=== PATIENT | female | born 1980 | race Caucasian/White ===

== ENCOUNTER 2018-04-11 16:02 | Emergency (ER) | payer MEDICARE ==
[2018-04-11] MEDS ORDERED: MOTRIN 600 MG PO ONE (16:19)
--- NOTE | 2018-04-11 16:35 | ERPHSYRPT ---
- History of Present Illness Time Seen by Provider: 04/11/18 16:13 Source: patient Exam Limitations: clinical condition Patient Subjective Stated Complaint: hurt left ankle and right elbow falling out of a freezer Triage Nursing Assessment: Pt c/o of stepping out of a large freezer and fell and hurt her left foot and right elbow, left foot is swollen, right elbow is bruised, denies any other injuries, vitals wnl, pulses normal, doesn't appear to be in any distress Physician History: PATIENT FELL OUT OF FREEZER SUSTAINED INJURY TO HER LEFT FOOT AND RIGHT ELBOW. DENIES HEAD, NECK OR BACK INJURY, HAS SWELLING OVER LEFT FOOT. Occurred: just prior to arrival Reason for Fall: lost balance Injuries/Pain Location: upper extremity, lower extremity Loss of Consciousness: no loss of consciousness Quality: aching Severity of Pain-Max: mild Severity of Pain-Current: mild Modifying Factors: Improves With: movement Associated Symptoms (Fall): trouble walking, other (HAS PAIN UPON WEIGHT BEARING.) Allergies/Adverse Reactions: No Known Drug Allergies Allergy (Verified 04/11/18 16:17) Home Medications: Alprazolam 1 mg [Xanax 1 mg] 1 mg PO TID 04/11/18 [History] Hx Tetanus, Diphtheria Vaccination/Date Given: No - Past Medical History Pertinent Past Medical History: Yes Psycho-Social History: Anxiety - Past Surgical History Past Surgical History: No - Social History Smoking Status: Current every day smoker How long have you smoked: 15 years Exposure to second hand smoke: Yes Drug Use: none Patient Lives Alone: No - Female History Hx Last Menstrual Period: 03/19/2018 Hx Now: No - Nursing Vital Signs Nursing Vital Signs: Initial Vital Signs Temperature 98.0 F 04/11/18 16:07 Pulse Rate 83 04/11/18 16:07 Blood Pressure 128/78 04/11/18 16:07 O2 Sat by Pulse Oximetry 99 04/11/18 16:07 Pain Scale Pain Intensity 4 - Physical Exam General Appearance: no apparent distress Extremity Exam: normal range of motion (RIGHT ELBOW FROM, NO SWELLING OR ECCHYMOSIS, TENDERNESS OVER OLECRANON, LEFT FOOT TENDERNESS WITH SWELLING OVER PROXIMAL LATERAL FOOT, NO CREPITUS, FULL RANGE OF MOTION ALL DIGITS, LEFT PEDIS PULSE 2+, LEFT ANKLE NONTENDER, FULL RANGE OF MOTION, NO SWELLING) Peripheral Pulses: femoral (L): 2+, dorsalis-pedis (R): 2+, dorsalis-pedis (L): 2+ SpO2: 99 - Radiology Exams Left Foot X-ray Interpretation: Discussed w/ radiologist, Negative, No Fracture Right Elbow X-ray Interpretation: Discussed w/ radiologist, Negative, No Fracture Ordered Tests: Active Orders 24 hr Category Date Time Status ELBOW (MINIMUM 3 VIEWS) Stat Exams 04/11/18 16:18 Ordered FOOT (MINIMUM 3 VIEWS) Stat Exams 04/11/18 16:16 Ordered Medication Summary Discontinued Medications Generic Name Dose Route Start Last Admin Trade Name Freq PRN Reason Stop Dose Admin Ibuprofen 600 mg 04/11/18 16:19 Motrin 600 Mg PO 04/11/18 16:20 STAT ONE - Progress Progress: pain not gone completely Progress Note: 04/11/18 16:50 MOTRIN 600MG ORALLY, FITTED FOR CRUTCHES Counseled pt/family regarding: diagnosis, need for follow-up - Departure Time of Disposition: 16:55 Departure Disposition: Home Clinical Impression: RIGHT ELBOW CONTUSION, LEFT FOOT CONTUSION/STRAIN Condition: Stable Critical Care Time: No Referrals: SAMMI LOPEZ [Primary Care Provider] - Additional Instructions: CONTINUE MOTRIN EVERY 6 HOURS FOR PAIN NEEDED. AMBULATE USING CRUTCHES NONWEIGHT BEARING LEFT FOOT X 4 DAYS. ELEVATE FOOT AND APPLY ICE OVER FOOT SWELLING EVERY 4 HOURS 30-40 MINUTES FOR 48 HOURS.
--- NOTE | 2018-04-11 16:41 | XRAY ---
Indication: Pain following fall. Comparison: None 3 nonweightbearing views of the left foot obtained. No bony, articular, or soft tissue abnormalities.
--- NOTE | 2018-04-11 16:41 | XRAY ---
Indication: Pain following fall. Comparison: None 3 views of the right elbow obtained. No bony, articular, or soft tissue abnormalities.
[2018-04-11] MEDS ORDERED: MOTRIN 600 MG ONE (16:44)
[2018-04-11 17:05] VITALS: BP 121/75; PULSE 80; O2SAT 100
== END 2018-04-11 17:05 | disposition home or self-care (01) ==
LOC: ED 16:02
DX: S50.01XA Contusion of right elbow, initial encounter (principal); S90.32XA Contusion of left foot, initial encounter; S96.912A Strain of unspecified muscle and tendon at ankle and foot level, left foot, initial encounter; W17.89XA Other fall from one level to another, initial encounter
CPT/HCPCS: 73080; 73630; 99283; A9270-GY